=== PATIENT | female | born 1980 | race Caucasian/White ===

== ENCOUNTER 2017-07-04 01:22 | Emergency (ER) | payer BC ==
[2017-07-04] MEDS ORDERED: Ketorolac 30 MG/ML SDV IVPUSH ONE (01:39)
[2017-07-04] MEDS ORDERED: Ondansetron 4 MG/2 ML SDV IVPUSH ONE (01:39)
--- NOTE | 2017-07-04 01:53 | EDM.PDOC ---
ED HPI GENERAL MEDICAL PROBLEM - General Chief Complaint: Abdominal Pain Stated Complaint: VOMITING Time Seen by Provider: 07/04/17 01:50 Source of Information: Reports: Patient History Limitations: Reports: No Limitations - History of Present Illness INITIAL COMMENTS - FREE TEXT/NARRATIVE: c/o RLQ pain onset 30 min [employer], sudden, not let up, no radiation, with n/v, no f/c/d no prior h/o pain, no prior abd surgery pacing in room, holding hand on R iliac crest abdomen right Pain Score (Numeric/FACES): 10 - Related Data Allergies Allergy/AdvReac Type Severity Reaction Status Date / Time No Known Allergies Allergy Verified 07/04/17 01:49 Home Meds: Home Meds Citalopram [Celexa] 10 mg PO DAILY 07/04/17 [History] Hydrocodone/Acetaminophen [Hydrocodon-Acetaminophen 5-325] 1 each PO Q6H PRN #6 tablet 07/04/17 [Rx] Ketorolac [Toradol] 10 mg PO QID #12 tab 07/04/17 [Rx] Social & Family History - Tobacco Use Smoking Status *Q: Never Smoker Years of Tobacco use: 7 Second Hand Smoke Exposure: No - Alcohol Use Days Per Week of Alcohol Use: 0 - Recreational Drug Use Recreational Drug Use: No ED ROS GENERAL - Review of Systems Review Of Systems: See Below Constitutional: Reports: No Symptoms HEENT: Reports: No Symptoms Respiratory: Reports: No Symptoms Cardiovascular: Reports: No Symptoms Endocrine: Reports: No Symptoms GI/Abdominal: Reports: Abdominal Pain, Nausea, Vomiting : Reports: No Symptoms Musculoskeletal: Reports: No Symptoms Skin: Reports: No Symptoms Neurological: Reports: No Symptoms Psychiatric: Reports: No Symptoms Hematologic/Lymphatic: Reports: No Symptoms Immunologic: Reports: No Symptoms ED EXAM, RENAL/ - Physical Exam Exam: See Below Exam Limited By: No Limitations General Appearance: Alert, WD/WN, Moderate Distress, Other (pacing) Eye Exam: Bilateral Eye: PERRL Ears: Normal Canal, Hearing Grossly Normal Nose: Normal Inspection, Normal Mucosa, No Blood Throat/Mouth: Normal Inspection, Normal Lips, Normal Teeth, Normal Gums, Normal Voice, No Airway Compromise Head: Atraumatic, Normocephalic Neck: Normal Inspection, Supple, Non-Tender, Full Range of Motion Respiratory/Chest: No Respiratory Distress, Lungs Clear, Normal Breath Sounds, No Accessory Muscle Use, Chest Non-Tender Cardiovascular: Regular Rate, Rhythm, No Edema, No Gallop, No JVD, No Murmur, No Rub GI/Abdominal: Soft, Non-Tender, No Distention, Other (obese, no CVAT). No: Distended, Guarding, Rigid, Rebound Back Exam: Normal Inspection, Full Range of Motion, NT Extremities: Normal Inspection, Normal Range of Motion, Non-Tender, No Pedal Edema Neurological: Alert, Oriented, CN II-XII Intact, Normal Cognition, No Motor/ Sensory Deficits Psychiatric: Normal Affect, Normal Mood Skin Exam: Warm, Dry, Intact, Normal Color, No Rash Lymphatic: No Adenopathy Course - Vital Signs Last Recorded V/S: Last Vital Signs Temp 36.6 C 07/04/17 02:00 Pulse 76 07/04/17 03:00 Resp 22 H 07/04/17 03:00 BP 142/95 H 07/04/17 03:00 Pulse Ox 100 07/04/17 03:00 - Orders/Labs/Meds Orders: Active Orders 24 hr Category Date Time Status Abdomen Pelvis wo Cont [CT] Stat Exams 07/04/17 01:49 Taken Sodium Chloride 0.9% [Normal Saline] 1,000 ml Med 07/04/17 02:00 Active IV ASDIRECTED Medication Orders Sodium Chloride (Normal Saline) 1,000 mls @ 999 mls/hr IV ASDIRECTED AMBAR Last Admin: 07/04/17 02:13 Dose: 999 mls/hr Labs: Laboratory Tests 07/04/17 07/04/17 07/04/17 Range/Units 01:50 01:50 02:00 WBC 11.7 (4.5-12.0) X10-3/uL RBC 5.10 (3.23-5.20) x10(6)uL Hgb 14.7 (11.5-15.5) g/dL Hct 43.5 (30.0-51.3) % MCV 85.3 (80-96) fL MCH 28.7 (27.7-33.6) pg MCHC 33.7 (32.2-35.4) g/dL RDW 14.0 (11.5-15.5) % Plt Count 343 (125-369) X10(3)uL MPV 8.8 (7.4-10.4) fL Neut % (Auto) 67.2 (46-82) % Lymph % (Auto) 23.0 (13-37) % [place] % (Auto) 3.9 L (4-12) % Eos % (Auto) 5 (1.0-5.0) % Baso % (Auto) 1 (0-2) % Neut # (Auto) 7.8 (1.6-8.3) # Lymph # (Auto) 2.7 (0.6-5.0) # [place] # (Auto) 0.5 (0.0-1.3) # Eos # (Auto) 0.6 (0.0-0.8) # Baso # (Auto) 0.1 (0.0-0.2) # Sodium (135-145) mmol/L Potassium (3.5-5.3) mmol/L Chloride (100-110) mmol/L Carbon Dioxide (21-32) mmol/L BUN (7-18) mg/dL Creatinine (0.55-1.02) mg/dL Est Cr Clr Drug Dosing mL/min Estimated GFR (MDRD) (>60) BUN/Creatinine Ratio (9-20) Glucose (80-116) mg/dL Calcium (8.6-10.2) mg/dL Total Bilirubin (0.1-1.3) mg/dL AST (5-25) IU/L ALT (12-36) U/L Alkaline Phosphatase (56-112) IU/L C-Reactive Protein (0.5-0.9) mg/dL Total Protein (6.0-8.0) g/dL Albumin (3.5-5.2) g/dL Globulin g/dL Albumin/Globulin Ratio Urine Color Yellow (YELLOW) Urine Appearance Slightly cloudy (CLEAR) Urine pH 5.0 (5.0-6.5) Ur Specific [place] 1.030 H (1.010-1.025) Urine Protein Negative (NEGATIVE) mg/dL Urine Glucose (UA) Normal (NEGATIVE) mg/dL Urine Ketones Negative (NEGATIVE) mg/dL Urine Occult Blood Negative (NEGATIVE) Urine Nitrite Negative (NEGATIVE) Urine Bilirubin Negative (NEGATIVE) Urine Urobilinogen 1 H (NEGATIVE) mg/dL Ur Leukocyte Esterase Negative (NEGATIVE) Urine RBC 0-5 (0) Urine WBC 0-5 (0) Ur Squamous Epith Cells Few H (NS,R,O) Urine Bacteria Few H (NS) Urine HCG, Qual Negative (NEGATIVE) 07/04/17 07/04/17 Range/Units 02:00 02:00 WBC (4.5-12.0) X10-3/uL RBC (3.23-5.20) x10(6)uL Hgb (11.5-15.5) g/dL Hct (30.0-51.3) % MCV (80-96) fL MCH (27.7-33.6) pg MCHC (32.2-35.4) g/dL RDW (11.5-15.5) % Plt Count (125-369) X10(3)uL MPV (7.4-10.4) fL Neut % (Auto) (46-82) % Lymph % (Auto) (13-37) % [place] % (Auto) (4-12) % Eos % (Auto) (1.0-5.0) % Baso % (Auto) (0-2) % Neut # (Auto) (1.6-8.3) # Lymph # (Auto) (0.6-5.0) # [place] # (Auto) (0.0-1.3) # Eos # (Auto) (0.0-0.8) # Baso # (Auto) (0.0-0.2) # Sodium 139 (135-145) mmol/L Potassium 3.3 L (3.5-5.3) mmol/L Chloride 103 (100-110) mmol/L Carbon Dioxide 24 (21-32) mmol/L BUN 15 (7-18) mg/dL Creatinine 1.0 (0.55-1.02) mg/dL Est Cr Clr Drug Dosing 59.82 mL/min Estimated GFR (MDRD) > 60 (>60) BUN/Creatinine Ratio 15.0 (9-20) Glucose 201 H (80-116) mg/dL Calcium 9.1 (8.6-10.2) mg/dL Total Bilirubin 0.5 (0.1-1.3) mg/dL AST 15 (5-25) IU/L ALT 32 (12-36) U/L Alkaline Phosphatase 105 (56-112) IU/L C-Reactive Protein 2.3 H (0.5-0.9) mg/dL Total Protein 7.6 (6.0-8.0) g/dL Albumin 3.6 (3.5-5.2) g/dL Globulin 4.0 g/dL Albumin/Globulin Ratio 0.9 Urine Color (YELLOW) Urine Appearance (CLEAR) Urine pH (5.0-6.5) Ur Specific [place] (1.010-1.025) Urine Protein (NEGATIVE) mg/dL Urine Glucose (UA) (NEGATIVE) mg/dL Urine Ketones (NEGATIVE) mg/dL Urine Occult Blood (NEGATIVE) Urine Nitrite (NEGATIVE) Urine Bilirubin (NEGATIVE) Urine Urobilinogen (NEGATIVE) mg/dL Ur Leukocyte Esterase (NEGATIVE) Urine RBC (0) Urine WBC (0) Ur Squamous Epith Cells (NS,R,O) Urine Bacteria (NS) Urine HCG, Qual (NEGATIVE) Meds: Medications Generic Name Dose Route Start Last Admin Trade Name Freq PRN Reason Stop Dose Admin Sodium Chloride 1,000 mls @ 999 mls/hr 07/04/17 02:00 07/04/17 02:13 Normal Saline IV 999 mls/hr ASDIRECTED AMBAR Administration Discontinued Medications Generic Name Dose Route Start Last Admin Trade Name Freq PRN Reason Stop Dose Admin Ketorolac Tromethamine 30 mg 07/04/17 01:39 07/04/17 01:45 Toradol IVPUSH 07/04/17 01:40 30 mg ONETIME ONE Administration Morphine Sulfate 2 mg 07/04/17 03:06 07/04/17 03:12 Morphine IVPUSH 07/04/17 03:07 2 mg ONETIME ONE Administration Morphine Sulfate Confirm 07/04/17 03:56 Morphine Administered 07/04/17 03:57 Dose 2 mg .ROUTE .STK-MED ONE Ondansetron HCl 4 mg 07/04/17 01:39 07/04/17 01:48 Zofran IVPUSH 07/04/17 01:40 4 mg ONETIME ONE Administration Potassium Chloride 40 meq 07/04/17 03:55 Klor-Con M20 PO 07/04/17 03:56 ONETIME ONE Potassium Chloride Confirm 07/04/17 03:56 Klor-Con M20 Administered 07/04/17 03:57 Dose 40 meq .ROUTE .STK-MED ONE Departure - Departure Time of Disposition: 04:02 Disposition: Home, Self-Care 01 Condition: Good Clinical Impression: Ureteral calculus, right, Hypokalemia, Hyperglycemia, Elevated C-reactive protein (CRP) - Discharge Information Prescriptions: Hydrocodone/Acetaminophen [Hydrocodon-Acetaminophen 5-325] 1 each PO Q6H PRN #6 tablet PRN Reason: Pain Ketorolac [Toradol] 10 mg PO QID #12 tab Instructions: Kidney Stones, Renal Colic, Hyperglycemia Referrals: Anni Rawls NP [Primary Care Provider] - Forms: ED Department Discharge Additional Instructions: For pain and spasm, take ketorolac 10 mg 1 tab 4 times a day until the stone passes. For pain, as needed, take hydrocodone with acetaminophen 5/325 mg 1 tab every 6 hour as needed. Increase fluids. May maintain activity as tolerated. Your glucose is 201, which is twice as high as normal. You will want to discuss this with your physician. See your physician in 2 days. Screen your urine for the stone. Call your Physician or Return to Emergency Department if: * Your condition worsens in any way. * You develop fever greater than 100.4. * You have vomitting that does not stop with medications. * You have pain that is not controlled with medications. - My Orders Last 24 Hours: My Active Orders 07/04/17 01:49 Abdomen Pelvis wo Cont [CT] Stat 07/04/17 02:00 Sodium Chloride 0.9% [Normal Saline] 1,000 ml IV ASDIRECTED - Assessment/Plan Last 24 Hours: My Active Orders 07/04/17 01:49 Abdomen Pelvis wo Cont [CT] Stat 07/04/17 02:00 Sodium Chloride 0.9% [Normal Saline] 1,000 ml IV ASDIRECTED
[2017-07-04] MEDS ORDERED: Sodium Chloride 0.9% 1,000 ML IV SCH (02:00)
[2017-07-04] MEDS ORDERED: Morphine 2 MG/ML Syringe IVPUSH ONE ×3 (03:06→04:00)
[2017-07-04 03:16] VITALS: BP 142/95
[2017-07-04] MEDS ORDERED: Potassium Chloride 20 MEQ Tab.ER PO ONE (03:55)
[2017-07-04] MEDS ORDERED: Morphine 2 MG/ML Syringe ONE (03:56)
[2017-07-04] MEDS ORDERED: Potassium Chloride 20 MEQ Tab.ER ONE (03:56)
== END 2017-07-04 04:10 | disposition home or self-care (01) ==
LOC: FB.ED 01:22
DX: N20.0 Calculus of kidney (principal); N13.4 Hydroureter; R73.9 Hyperglycemia, unspecified; E87.6 Hypokalemia; Z79.899 Other long term (current) drug therapy
CPT/HCPCS: 36415; 74176; 80053; 81001; 81025; 85025; 86140; 96361; 96374; 96375; 96376; 99284; A9270; J1885; J2270; J2405; J7040

== ENCOUNTER 2017-08-18 09:11 | Emergency (ER) | payer BC ==
[2017-08-18] MEDS: Ketorolac 30 MG/ML SDV IVPUSH ONE (09:50)
[2017-08-18] MEDS: Sodium Chloride 0.9% 10 ML Syringe FLUSH PRN (09:50)
--- NOTE | 2017-08-18 09:54 | EDM.PDOC ---
ED HPI GENERAL MEDICAL PROBLEM - General Chief Complaint: Genitourinary Problem Stated Complaint: LEFT LOWER BACK PAIN Time Seen by Provider: 08/18/17 09:31 Source of Information: Reports: Patient, Family History Limitations: Reports: No Limitations - History of Present Illness INITIAL COMMENTS - FREE TEXT/NARRATIVE: 36 y.o.w.f came to the ed with her family due to sudden onset of left flank pain, radiating to her left groin. Denied a possibility of , last NMP was 1 year ago, in on [place]. No trauma. Pain does not get worse with movement. No other acute medical issues. BP 138/81 RR 18 Pulse 87 Pulse ox 98% on RA, Temp 36.7 Onset: Today Onset Date: 08/18/17 Onset Time: 07:00 Duration: Hour(s):, Intermittent Location: Reports: Back Quality: Reports: Ache Severity: Moderate Improves with: Reports: Rest Worsens with: Reports: Movement Context: Reports: Other (H/O kidney stones) Associated Symptoms: Reports: No Other Symptoms (left groin pain) Left Flank Pain Score (Numeric/FACES): 8 - Related Data Allergies Allergy/AdvReac Type Severity Reaction Status Date / Time No Known Allergies Allergy Verified 07/04/17 01:49 Home Meds: Home Meds Citalopram [Celexa] 10 mg PO DAILY 07/04/17 [History] Ibuprofen [Motrin] 600 mg PO TID PRN #20 tab 08/18/17 [Rx] Tamsulosin HCl [Flomax] 0.4 mg PO DAILY #3 cap.er.24h 08/18/17 [Rx] acetaZOLAMIDE [Acetazolamide] 500 mg PO BID 08/18/17 [History] Past Medical History - Past Health History Medical/Surgical History: Denies Medical/Surgical History Social & Family History - Tobacco Use Smoking Status *Q: Never Smoker Years of Tobacco use: 7 Second Hand Smoke Exposure: No - Alcohol Use Days Per Week of Alcohol Use: 0 - Recreational Drug Use Recreational Drug Use: No ED ROS GENERAL - Review of Systems Review Of Systems: See Below Constitutional: Reports: No Symptoms HEENT: Reports: No Symptoms Respiratory: Reports: No Symptoms Cardiovascular: Reports: No Symptoms Endocrine: Reports: No Symptoms GI/Abdominal: Reports: No Symptoms : Reports: No Symptoms Musculoskeletal: Reports: Back Pain Skin: Reports: No Symptoms Neurological: Reports: No Symptoms Psychiatric: Reports: No Symptoms Hematologic/Lymphatic: Reports: No Symptoms Immunologic: Reports: No Symptoms ED EXAM, RENAL/ - Physical Exam Exam: See Below Exam Limited By: No Limitations General Appearance: Alert, WD/WN, Mild Distress Eye Exam: Bilateral Eye: Normal Inspection Ears: Normal External Exam Nose: Normal Inspection Throat/Mouth: Normal Inspection Head: Atraumatic, Normocephalic Neck: Normal Inspection, Supple, Non-Tender Respiratory/Chest: No Respiratory Distress, Lungs Clear, Normal Breath Sounds, Chest Non-Tender Cardiovascular: Normal Peripheral Pulses, Regular Rate, Rhythm, No Edema, No Gallop, No Rub GI/Abdominal: Normal Bowel Sounds, Soft, Non-Tender, No Organomegaly, No Abnormal Bruit (Female) Exam: Deferred Rectal (Female) Exam: Deferred Back Exam: CVA Tenderness (L) Extremities: Normal Inspection, Normal Range of Motion Neurological: Alert, Oriented, CN II-XII Intact, Normal Cognition, Normal Gait Psychiatric: Normal Affect, Normal Mood Skin Exam: Warm, Dry, Intact, Normal Color, No Rash Lymphatic: No Adenopathy Course - Vital Signs Text/Narrative:: 36 y.o.w.f came to the ed with her family due to sudden onset of left flank pain, radiating to her left groin. Denied a possibility of , last NMP was 1 year ago, in on [place]. No trauma. Pain does not get worse with movement. No other acute medical issues. BP 138/81 RR 18 Pulse 87 Pulse ox 98% on RA, Temp 36.7 PE: Left flank pain Imaging: CT abd/pelvis: Extasia of left ureter. Possible passed Kidney stone. Labs: Teri hematuria Impression: Urolithiasis, teri haematuria. Tx: Toradol/Flomax Reexam: Pain subsided Plan: D/C with instructions Last Recorded V/S: Last Vital Signs Temp 36.6 C 08/18/17 09:31 Pulse 76 08/18/17 11:00 Resp 18 08/18/17 11:00 BP 124/65 08/18/17 11:00 Pulse Ox 100 08/18/17 11:00 - Orders/Labs/Meds Orders: Active Orders 24 hr Category Date Time Status Abdomen Pelvis wo Cont [CT] Stat Exams 08/18/17 09:39 Taken Peripheral IV Insertion Adult [OM.PC] Routine Oth 08/18/17 09:45 Ordered Labs: Laboratory Tests 08/18/17 08/18/17 08/18/17 Range/Units 09:21 09:55 09:55 WBC 8.4 (4.5-12.0) X10-3/uL RBC 5.20 (3.23-5.20) x10(6)uL Hgb 14.9 (11.5-15.5) g/dL Hct 43.8 (30.0-51.3) % MCV 84.2 (80-96) fL MCH 28.7 (27.7-33.6) pg MCHC 34.1 (32.2-35.4) g/dL RDW 13.9 (11.5-15.5) % Plt Count 314 (125-369) X10(3)uL MPV 8.3 (7.4-10.4) fL Neut % (Auto) 72.5 (46-82) % Lymph % (Auto) 17.2 (13-37) % Hand % (Auto) 1.8 L (4-12) % Eos % (Auto) 8 H (1.0-5.0) % Baso % (Auto) 1 (0-2) % Neut # (Auto) 6.0 (1.6-8.3) # Lymph # (Auto) 1.4 (0.6-5.0) # Hand # (Auto) 0.2 (0.0-1.3) # Eos # (Auto) 0.7 (0.0-0.8) # Baso # (Auto) 0.1 (0.0-0.2) # Sodium 141 (135-145) mmol/L Potassium 4.0 (3.5-5.3) mmol/L Chloride 108 D (100-110) mmol/L Carbon Dioxide 21 (21-32) mmol/L BUN 12 (7-18) mg/dL Creatinine 0.9 (0.55-1.02) mg/dL Est Cr Clr Drug Dosing 63.26 mL/min Estimated GFR (MDRD) > 60 (>60) BUN/Creatinine Ratio 13.3 (9-20) Glucose 128 H (80-116) mg/dL Calcium 9.0 (8.6-10.2) mg/dL Urine Color Yellow (YELLOW) Urine Appearance Slightly cloudy (CLEAR) Urine pH 5.0 (5.0-6.5) Ur Specific [place] 1.020 (1.010-1.025) Urine Protein Negative (NEGATIVE) mg/dL Urine Glucose (UA) Normal (NEGATIVE) mg/dL Urine Ketones Negative (NEGATIVE) mg/dL Urine Occult Blood Large H (NEGATIVE) Urine Nitrite Negative (NEGATIVE) Urine Bilirubin Negative (NEGATIVE) Urine Urobilinogen Normal (NEGATIVE) mg/dL Ur Leukocyte Esterase Negative (NEGATIVE) Urine RBC 75-100 H (0) Urine WBC 0-5 (0) Ur Squamous Epith Cells Moderate H (NS,R,O) Urine Bacteria Moderate H (NS) Meds: Medications Discontinued Medications Generic Name Dose Route Start Last Admin Trade Name Freq PRN Reason Stop Dose Admin Ketorolac Tromethamine 30 mg 08/18/17 09:43 08/18/17 09:50 Toradol IVPUSH 08/18/17 09:44 30 mg ONETIME ONE Administration Sodium Chloride 10 ml 08/18/17 09:54 08/18/17 09:50 Saline Flush FLUSH 10 ml ASDIRECTED PRN Administration Keep Vein Open Departure - Departure Time of Disposition: 11:06 Disposition: Home, Self-Care 01 Condition: Good Clinical Impression: Urolithiasis Qualifiers: Urinary calculus location: ureter Qualified Code(s): N20.1 - Calculus of ureter - Discharge Information Prescriptions: Ibuprofen [Motrin] 600 mg PO TID PRN #20 tab PRN Reason: for moderate pain Tamsulosin HCl [Flomax] 0.4 mg PO DAILY #3 cap.er.24h Instructions: Kidney Stones, [id number], Dietary Guidelines to Help Prevent Kidney Stones Referrals: Anni Rawls NP [Primary Care Provider] - Forms: ED Department Discharge Additional Instructions: Please increase water intake, please take the meds as recommended, please f/u, come back if your symptoms get worse acutely. - My Orders Last 24 Hours: My Active Orders 08/18/17 09:39 Abdomen Pelvis wo Cont [CT] Stat 08/18/17 09:45 Peripheral IV Insertion Adult [OM.PC] Routine - Assessment/Plan Last 24 Hours: My Active Orders 08/18/17 09:39 Abdomen Pelvis wo Cont [CT] Stat 08/18/17 09:45 Peripheral IV Insertion Adult [OM.PC] Routine
[2017-08-18 11:44] VITALS: BP 124/65
== END 2017-08-18 11:25 | disposition home or self-care (01) ==
LOC: FB.ED 09:11
DX: N20.1 Calculus of ureter (principal); R31.29 Other microscopic hematuria
CPT/HCPCS: 36415; 74176; 80048; 81001; 85025; 96374; 99284; J1885; J7050

== ENCOUNTER 2022-08-03 07:09 | Emergency (ER) | payer BC, OTHER ==
[2022-08-03] MEDS: Morphine 4 MG/ML VIAL IVPUSH ONE (07:48)
[2022-08-03] MEDS: Ondansetron 4 MG/2 ML SDV IVPUSH ONE (07:48)
[2022-08-03] MEDS: Sodium Chloride 0.9% 1,000 ML IV SCH (07:48)
[2022-08-03 08:33] LABS: ESTIMATED GFR 113 mL/min (>60)
[2022-08-03] MEDS: Ketorolac 30 MG/ML SDV IVPUSH ONE (08:57)
[2022-08-03 15:29] VITALS: BP 145/82; PULSE 57
== END 2022-08-03 11:00 | disposition home or self-care (01) ==
LOC: FB.ED 07:09
DX: N20.0 Calculus of kidney (principal); N39.0 Urinary tract infection, site not specified; E66.9 Obesity, unspecified; Z88.0 Allergy status to penicillin; Z79.899 Other long term (current) drug therapy
CPT/HCPCS: 36415; 74176; 80048; 81001; 81025; 85025; 87086; 96361; 96374; 96375; 99284-25; J1885; J2270; J2405; J7030